=== PATIENT | female | born 1960 | race Caucasian/White ===

== ENCOUNTER 2020-04-06 17:25 | Emergency (ER) | payer OTHER, SELFPAY ==
[2020-04-06 17:38] VITALS: BP 196/112; PULSE 86; RESP 18; TEMP 37.1; O2SAT 98
--- NOTE | 2020-04-06 17:48 | ED.UPPEXIN ---
HPI - Extremity Injury (Upper) General Chief Complaint: Extremity Injury, Upper Stated Complaint: Arm Pain Time Seen by Provider: 04/06/20 17:40 Source: patient and RN notes reviewed Mode of arrival: ambulatory Limitations: no limitations History of Present Illness HPI narrative: Patient presents today complaining of an injury to her left forearm. She tripped and fell into the corner of a wall, left forearm first. Injury occurred around 3 hours prior to exam. Denies numbness or tingling in the arm or hand. No pain with range of motion. Currently rates her pain 2/10 and has been applying ice. She takes no blood thinners or NSAIDs. MD complaint: injury to: left and forearm Related Data Home Medications Medication Instructions Recorded Confirmed amlodipine 10 mg PO DAILY 04/06/20 04/06/20 buspirone 5 mg PO DAILY 04/06/20 04/06/20 venlafaxine 75 mg PO DAILY 04/06/20 04/06/20 Allergies Allergy/AdvReac Type Severity Reaction Status Date / Time codeine Allergy Unknown Other Verified 04/06/20 17:44 ANTIINFLAMMATORY MEDS Allergy Unknown N/V, Uncoded 04/06/20 17:44 STOMACH UPSET Review of Systems Review of Systems: Narrative: CONSTITUTIONAL: Denies body aches, fever, chills, or sweats. EYES: Denies visual changes, redness, or discharge. ENT: Denies rhinorrhea, congestion, sore throat, or otalgia. CARDIOVASCULAR: Denies chest pain, palpitations, or edema. RESPIRATORY: Denies cough or dyspnea. GASTROINTESTINAL: Denies abdominal pain, nausea, vomiting, or diarrhea. GENITOURINARY: Denies dysuria or hematuria. SKIN: Denies rash, itching, or wounds. MUSCULOSKELETAL: Denies back pain, joint pain, or myalgia.+ Left forearm injury NEUROLOGIC: Denies headache, numbness, tingling, or weakness. PSYCH: Denies depression or anxiety. [facility]LY [facility] Past Medical History Medical History (Updated 04/06/20 @ 17:52 by Albertina Siegel, [employer]PER[employer], ) Anxiety Diet-controlled diabetes mellitus Hypertension Comments At time of signature, I have reviewed and agree with nursing past medical, surgical, social and family history unless otherwise noted. Please see nursing chart for further information. There is no relevant family history pertinent to the presenting complaint Exam Narrative: Exam Narrative: GENERAL: Well-appearing, well-nourished, and in no acute distress. HEAD: Normocephalic, atraumatic. EYES: EOMI. No redness or drainage. Conjunctivae normal. ENT: Mucous membranes pink and moist. NECK: Normal AROM. CHEST: No respiratory distress. EXTREMITIES: Left forearm: 12 x 11 cm moderate hematoma to the lateral forearm. Tender to palpation. No bony tenderness of the elbow or forearm. Distal sensation intact. Capillary refill normal. Radial pulse normal. Full range of motion of the elbow and wrist. SKIN: Warm, dry, no rash. Capillary refill normal. Normal skin turgor. NEURO: No focal deficits. Alert and oriented x3. Gait steady. PSYCH: Normal affect. No signs of depression or anxiety. Course Vital Signs Vital signs: Vital Signs Temperature 98.7 F 04/06/20 17:38 Pulse Rate 86 04/06/20 17:38 Respiratory Rate 18 04/06/20 17:38 Blood Pressure 196/112 H 04/06/20 17:38 Pulse Oximetry 98 04/06/20 17:38 Temperature 98.7 F 04/06/20 17:38 Pulse Rate 86 04/06/20 17:38 Respiratory Rate 18 04/06/20 17:38 Blood Pressure 176/108 H 04/06/20 17:56 Pulse Oximetry 98 04/06/20 17:38 Reviewed. Pt has been instructed to follow up with her PCP regarding her elevated blood pressure today. MDM - Extremity Injury (Upper) Differential Diagnosis Differential diagnosis: Likely other (Forearm contusion, hematoma, sprain, fracture) Critical Care Time Critical Care Time Critical Care Time: No Discharge Plan Discharge Clinical Impression: Traumatic hematoma of left forearm Qualifiers: Encounter type: initial encounter Qualified Code(s): S50.12XA - Contusion of left forearm, initial encounter Pat
[2020-04-06 17:56] VITALS: BP 176/108
== END 2020-04-06 17:56 | disposition home or self-care (01) ==
PROVIDERS: Emergency Provider Nurse Practitioner; PCP Nurse Practitioner Family
DX: S50.12XA Contusion of left forearm, initial encounter (principal); W01.0XXA Fall on same level from slipping, tripping and stumbling without subsequent striking against object, initial encounter; F41.9 Anxiety disorder, unspecified; E11.9 Type 2 diabetes mellitus without complications; I10 Essential (primary) hypertension
CPT/HCPCS: 99212; G0463

== ENCOUNTER 2020-12-23 08:04 | Outpatient (CLI) | payer OTHER, SELFPAY ==
--- NOTE | ~2020-12-23 | MM_ITS ---
EXAMINATION: MM screening [facility] BI w luz HISTORY: Screening mammogram TECHNIQUE: Craniocaudal and mediolateral oblique 3-D tomosynthesis images were obtained and synthetic 2-D images were generated. CAD analysis was submitted and interpreted. COMPARISON: 11/25/2018, 03/28/2018, 03/21/2018 BREAST PARENCHYMAL COMPOSITION: There are scattered areas of fibroglandular density. FINDINGS: RIGHT BREAST: There is no evidence of suspicious mass, calcification, or architectural distortion to suggest malignancy. There has been no significant interval change. LEFT BREAST: A mass is present in the middle third of the outer, slightly lower breast best appreciat ed 4.5 cm from the nipple on the craniocaudal view. IMPRESSION: 1. Left breast mass. 2. Additional mammographic views and possible breast ultrasound are recommended. BI-RADS Category 0: Incomplete: Needs additional imaging evaluation. Reviewed, dictated and finalized at location A. IMPRESSION: 1. Left breast mass. 2. Additional mammographic views and possible breast ultrasound are recommended . BI-RADS Category 0: Incomplete: Needs additional imaging evaluation.
[2020-12-23 09:08] LABS: Basophils Percent Auto 0.6 % (0.2-1.2); Eosinophils Absolute Auto 0.2 K/mm3 (0-0.3); Eosinophils Percent Auto 2.7 % (0-4.4); Hematocrit 45.8 % (37.0-47.0); Hemoglobin 14.4 g/dL (12.0-15.0); Immature Granulocyte Absolute 0.03 K/mm3 (0.00-0.031); Immature Granulocyte Percent A 0.5 % (0-0.5); Lymphocytes Percent Auto 33.8 % (18.3-44.2); Mean Corpuscular HGB Conc 31.4 g/dl (32-36); Mean Corpuscular Hemoglobin 27.6 pg (26-34); Mean Corpuscular Volume 87.9 fl (80-100); Mean Platelet Volume 8.8 fl (7.4-10.4); Monocytes Absolute Auto 0.5 K/mm3 (0.1-0.6); Monocytes Percent Auto 7.4 % (2.6-8.5); Neutrophils Absolute Auto 3.4 K/mm3 (1.3-6.7); Platelet Count Result 296 k/mm3 (150-375); Red Blood Count 5.21 M/mm3 (4.2-5.4); Red Cell Distribution Width 12.4 % (11.5-14.5); White Blood Count 6.2 K/mm3 (4.5-10.0)
[2020-12-23 09:25] LABS: Alanine Aminotransferase 40 U/L (4-35); Albumin Level 4.3 g/dL (3.5-5.1); Alkaline Phosphatase 88 U/L (38-126); Anion Gap 4 mmol/L (8-16); Aspartate Amino Transferase 35 U/L (14-36); Bilirubin,Total 0.5 mg/dL (0.2-1.3); Blood Urea Nitrogen 14 mg/dL (7-17); Calcium 9.2 mg/dL (8.4-10.2); Carbon Dioxide 31 mmol/L (22-30); Chloride 106 mmol/L (98-107); Cholesterol 291 mg/dL (0-200); Estimated Glomerular Filt Rate > 60; Glucose 130 mg/dL (65-105); HDL Direct 35 mg/dL; Potassium 3.9 mmol/L (3.4-5.0); Sodium 141 mmol/L (137-145); Triglycerides 301 mg/dL (<150)
[2020-12-23 09:33] LABS: Hemoglobin A1C 7.1 % (<5.7)
[2020-12-23 09:43] LABS: LDL Cholesterol Direct 186 mg/dL
[2020-12-23 10:06] LABS: Total Triiodothyronine (T3) 1.35 NG/ML (0.97-1.69)
[2020-12-23 10:50] LABS: Free T4 Free Thyroxine 0.95 ng/mL (0.78-2.19); Vitamin D 25 Hydroxy 18.1 ng/mL
== END 2020-12-23 08:05 | disposition home or self-care (01) ==
PROVIDERS: PCP Family Medicine; Visit Provider Nurse Practitioner
DX: Z12.31 Encounter for screening mammogram for malignant neoplasm of breast (principal); E11.65 Type 2 diabetes mellitus with hyperglycemia; E55.9 Vitamin D deficiency, unspecified; R92.8 Other abnormal and inconclusive findings on diagnostic imaging of breast
CPT/HCPCS: 36415; 77063; 77067; 80053; 80061; 82306; 83036; 84439; 84443; 84480; 85025

== ENCOUNTER 2021-01-27 11:17 | Outpatient (CLI) | payer OTHER, SELFPAY ==
--- NOTE | ~2021-01-27 | MMUS_ITS ---
EXAMINATION: MM diagnostic mammo unilat LT, US breast LT limited HISTORY: Left breast mass on screening mammogram TECHNIQUE: Additional 3-D tomosynthesis images of the left breast were performed and synthetic 2-D im ages were generated. CAD analysis was submitted and interpreted. High resolution limited left breast ultrasound was performed. COMPARISON: 12/23/2020, 11/25/2018, 03/28/2018 BREAST PARENCHYMAL COMPOSITION: There are scattered areas of fibroglandular density. FINDINGS: MAMMOGRAPHIC FINDINGS: There is an 8 mm x 5 mm oval, equal density mass with possible microlobulated margin in the middle th ird of the slightly outer breast at the 3:00 location 3.5 cm from the nipple. ULTRASOUND: There is a 6 mm x 4 mm irregular hypoechoic mass with angular margins at the 3:00 location with no po sterior features or internal vascularity. IMPRESSION: 1. Indeterminate left breast mass. 2. Ultrasound-guided biopsy is recommended. BI-RADS category 4, suspicious findings. Reviewed, dictated and finalized at location A. IMPRESSION: 1. Indeterminate left breast mass. 2. Ultrasound-guided biopsy is recommended. BI-RADS category 4, suspicious findings.
== END 2021-01-27 11:18 | disposition home or self-care (01) ==
LOC: ANHIMG 11:19
PROVIDERS: PCP Family Medicine; Visit Provider Nurse Practitioner
DX: N63.25 Unspecified lump in the left breast, overlapping quadrants (principal)
CPT/HCPCS: 76642; 77065

== ENCOUNTER 2021-06-30 07:50 | Outpatient (CLI) | payer OTHER, SELFPAY ==
[2021-06-30 08:58] LABS: Alanine Aminotransferase 33 U/L (4-35); Albumin Level 4.5 g/dL (3.5-5.1); Alkaline Phosphatase 99 U/L (38-126); Anion Gap 8 mmol/L (8-16); Aspartate Amino Transferase 31 U/L (14-36); Bilirubin,Total 0.3 mg/dL (0.2-1.3); Blood Urea Nitrogen 14 mg/dL (7-17); Calcium 9.3 mg/dL (8.4-10.2); Carbon Dioxide 29 mmol/L (22-30); Chloride 102 mmol/L (98-107); Cholesterol 321 mg/dL (0-200); Estimated Glomerular Filt Rate > 60; Glucose 133 mg/dL (65-110); HDL Direct 36 mg/dL; Sodium 139 mmol/L (137-145); Triglycerides 250 mg/dL (<150)
[2021-06-30 09:09] LABS: LDL Cholesterol Direct 235 mg/dL
[2021-06-30 09:11] LABS: Basophils Absolute Auto 0.1 K/mm3 (0.0-0.1); Basophils Percent Auto 0.8 % (0.2-1.2); Eosinophils Absolute Auto 0.3 K/mm3 (0-0.3); Eosinophils Percent Auto 4.1 % (0-4.4); Hematocrit 44.9 % (37.0-47.0); Hemoglobin 14.2 g/dL (12.0-15.0); Immature Granulocyte Absolute 0.03 K/mm3 (0.00-0.031); Immature Granulocyte Percent A 0.5 % (0-0.5); Lymphocytes Percent Auto 37.4 % (18.3-44.2); Mean Corpuscular HGB Conc 31.6 g/dl (32-36); Mean Corpuscular Hemoglobin 28.3 pg (26-34); Mean Corpuscular Volume 89.4 fl (80-100); Mean Platelet Volume 8.8 fl (7.4-10.4); Monocytes Absolute Auto 0.5 K/mm3 (0.1-0.6); Monocytes Percent Auto 7.6 % (2.6-8.5); Neutrophils Absolute Auto 3.2 K/mm3 (1.3-6.7); Neutrophils Percent Auto 49.6 % (45.5-73.1); Platelet Count Result 268 k/mm3 (150-375); Red Blood Count 5.02 M/mm3 (4.2-5.4); Red Cell Distribution Width 12.2 % (11.5-14.5); White Blood Count 6.4 K/mm3 (4.5-10.0)
[2021-06-30 09:21] LABS: Creatinine Urine 314.9 mg/dL
[2021-06-30 09:25] LABS: MALB Creatinine Ratio 24.1 mg/g (0-30); Microalbumin Urine Random 75.9 mg/L (0-16.7)
[2021-06-30 09:28] LABS: Total Triiodothyronine (T3) 1.51 NG/ML (0.97-1.69)
[2021-06-30 09:35] LABS: Free T4 Free Thyroxine 1.05 ng/mL (0.78-2.19); Vitamin D 25 Hydroxy 17.9 ng/mL
== END 2021-06-30 07:51 | disposition home or self-care (01) ==
PROVIDERS: PCP Family Medicine; Visit Provider Family Medicine
DX: E03.9 Hypothyroidism, unspecified (principal); E55.9 Vitamin D deficiency, unspecified; E11.9 Type 2 diabetes mellitus without complications; E78.5 Hyperlipidemia, unspecified; E66.3 Overweight; I10 Essential (primary) hypertension
CPT/HCPCS: 36415; 80053; 80061; 82043; 82306; 84439; 84443; 84480; 85025

== ENCOUNTER 2021-11-18 16:15 | Emergency (ER) | payer OTHER, SELFPAY ==
--- NOTE | ~2021-11-18 | XR_ITS ---
EXAMINATION: XR hand RT min 3V DATE: 11/18/2021 16:33 INDICATION: Right thumb pain post injury TECHNIQUE: Posteroanterior, oblique and lateral views of the right hand were obtained. COMPARISON: Right wrist radiographs dated 12/13/2017 FINDINGS: Alignment is normal. No fracture. Polyarticular osteoarthritis at the right hand and wrist, moderate severity at the first carpal metacarpal joint and second, fourth and fifth distal interphalangeal abida nts and mild at the radial ulnar, wrist, midcarpal, triscaphe and many of the metacarpophalangeal and remaining interphalangeal joints. Consider mild cystic change along the proximal articular surface o f the lunate. Diffuse osteopenia. Soft tissues are unremarkable. IMPRESSION: 1. 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 No acute osseous abnorm ality. Reviewed, dictated and finalized at location B. IMPRESSION: 1. 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 N o acute osseous abnormality.
[2021-11-18 16:24] VITALS: BP 185/112; PULSE 94; RESP 16; TEMP 36.6; O2SAT 99
--- NOTE | 2021-11-18 16:27 | ED.UPPEXIN ---
HPI - Extremity Injury (Upper) General Chief Complaint: Extremity Injury, Upper Stated Complaint: right hand pain Time Seen by Provider: 11/18/21 16:27 Source: patient, RN notes reviewed and old records reviewed Mode of arrival: ambulatory Limitations: no limitations History of Present Illness HPI narrative: 61-year-old female presents to the [facility] with complaints of right thumb pain after closing it in a sliding door. Bruising and swelling noted to the base of right thumb. No treatment prior to arrival occurred a couple of hours prior to arrival. Has full range of motion. No treatment prior to arrival MD complaint: injury to: right and hand Related Data Home Medications Medication Instructions Recorded Confirmed atorvastatin 40 mg PO DAILY 11/18/21 11/18/21 bupropion HCl [Wellbutrin] 100 mg PO BID 11/18/21 11/18/21 ergocalciferol (vitamin D2) 1,250 mcg PO WEEKLY 11/18/21 11/18/21 escitalopram oxalate 20 mg PO DAILY 11/18/21 11/18/21 lisinopril 20 mg PO DAILY 11/18/21 11/18/21 Allergies Allergy/AdvReac Type Severity Reaction Status Date / Time codeine Allergy Unknown Other Verified 11/18/21 16:25 ANTIINFLAMMATORY MEDS Allergy Unknown N/V, Uncoded 11/18/21 16:45 STOMACH UPSET Review of Systems Review of Systems: All systems reviewed & are unremarkable except as noted in HPI and below Constitutional: Constitutional: Reports no additional constitutional complaints, Denies chills and Denies fever(s) Eyes: Eyes: Reports no additional eye complaints ENT: Reports system reviewed and no additional complaints, except as documented Cardiovascular: Cardiovascular: Reports no additional cardiovascular complaints Respiratory: Respiratory: Reports no additional respiratory complaints Gastrointestinal: Gastrointestinal: Reports no additional gastrointestinal complaints Musculoskeletal: Musculoskeletal: Reports as per HPI, Reports arthralgias (Base of right thumb) and Reports joint swelling (Base of right thumb) Integumentary/Breasts: Skin/Breast: Reports system reviewed and no additional complaints, except as docu Neurologic: Reports system reviewed and no additional complaints, except as documented Psychiatric: Psychiatric: Reports no additional psychiatric complaints Allergic/Immunologic: Allergic/Immunologic: Reports no additional allergic/immunologic complaints [facility] Past Medical History Medical History (Updated 11/18/21 @ 16:44 by Kelly A. Topper, [employer]) Anxiety Diet-controlled diabetes mellitus Hypertension Comments At the time of my signature, I reviewed and agree with the nursing past medical, surgical, social, and family history. There is no relevant family history pertinent to the patient complaint. Exam Const: General: no acute distress, alert and ill appearing chronically Nutritional Appearance: well nourished Orientation/consciousness: patient oriented x3 Limitations: no limitations HENMT: Head: normal to inspection Ears: external ears normal Eyes: Pupils: Equal, round and reactive pupils present Neck: Neck: normal visual inspection, no lymphadenopathy and no meningeal signs Chest: Chest palpation & inspection: normal inspection of the chest Resp: Effort & Inspection: normal respiratory effort and no use of accessory muscles Auscultation: clear to auscultation bilaterally, no crackles, no rales, no rhonchi and no wheezes Cardio: Rate: regular rate Rhythm: regular rhythm : General: Yes no CVA tenderness Back/Spine/Pelvis: Back: no CVA tenderness Skin: General skin exam: normal color and no erythema Rashes: no rashes Wounds: no wounds Neuro: General: patient oriented x3, moves all extremities, no meningeal signs and no focal motor deficits Cranial nerves: Yes Equal, round and reactive pupils present Speech: normal speech Gait exam (Neuro): Normal gait present Extrem: General: normal to inspection Right upper extremity: Extremity exam: right hand normal capillary
[2021-11-18 16:50] VITALS: BP 150/88
== END 2021-11-18 16:50 | disposition home or self-care (01) ==
PROVIDERS: Emergency Provider Nurse Practitioner
DX: S60.011A Contusion of right thumb without damage to nail, initial encounter (principal); X58.XXXA Exposure to other specified factors, initial encounter; F41.9 Anxiety disorder, unspecified; E11.9 Type 2 diabetes mellitus without complications; I10 Essential (primary) hypertension
CPT/HCPCS: 73130; 99213; G0463

== ENCOUNTER 2022-11-05 08:21 | Outpatient (CLI) | payer OTHER, SELFPAY ==
[2022-11-05 09:44] LABS: Hematocrit 44.4 % (37.0-47.0); Hemoglobin 14.6 g/dL (12.0-15.0); Mean Corpuscular HGB Conc 32.9 g/dl (32-36); Mean Corpuscular Hemoglobin 27.3 pg (26-34); Mean Corpuscular Volume 83.1 fl (80-100); Mean Platelet Volume 8.9 fl (7.4-10.4); Platelet Count Result 345 k/mm3 (150-375); Red Blood Count 5.34 M/mm3 (4.2-5.4); Red Cell Distribution Width 12.7 % (11.5-14.5); White Blood Count 12.6 K/mm3 (4.5-10.0)
[2022-11-05 10:16] LABS: Vitamin D 25 Hydroxy 24.7 ng/mL
[2022-11-05 11:47] LABS: Alanine Aminotransferase 83 U/L (6-35); Albumin Level 4.6 g/dL (3.5-5.1); Alkaline Phosphatase 115 U/L (38-126); Anion Gap 10 mmol/L (8-16); Aspartate Amino Transferase 54 U/L (14-36); Bilirubin,Total 0.6 mg/dL (0.2-1.3); Blood Urea Nitrogen 24 mg/dL (7-17); Calcium 9.5 mg/dL (8.4-10.2); Carbon Dioxide 27 mmol/L (22-30); Chloride 100 mmol/L (98-107); Estimated Glomerular Filt Rate > 60; Glucose 328 mg/dL (65-110); Magnesium 1.9 mg/dL (1.6-2.3); Phosphorus 4.4 mg/dL (2.5-4.5); Potassium 4.6 mmol/L (3.4-5.0); Sodium 137 mmol/L (137-145)
[2022-11-05 12:36] LABS: Thyroid Stimulating Hormone 0.922 uIU/mL (0.465-4.680)
[2022-11-05 13:03] LABS: Iron 92 ug/dL (37-170)
[2022-11-05 13:08] LABS: Percent Iron Saturation 31 % (20-50)
[2022-11-05 13:12] LABS: Folic Acid 7.6 ng/mL (2.76->20)
[2022-11-10 03:43] LABS: Testosterone Free 5.5 pg/mL (0.2-5.0)
== END 2022-11-05 08:22 | disposition home or self-care (01) ==
LOC: ANHLAB 08:24
PROVIDERS: Visit Provider Family Medicine
DX: R53.83 Other fatigue (principal); M62.81 Muscle weakness (generalized); I10 Essential (primary) hypertension; E78.5 Hyperlipidemia, unspecified; E55.9 Vitamin D deficiency, unspecified
CPT/HCPCS: 36415; 80053; 82306; 82607; 82746; 83540; 83550; 83735; 84100; 84402; 84443; 85027

== ENCOUNTER 2022-11-14 10:45 | Emergency (ER) | payer OTHER, SELFPAY ==
--- NOTE | 2022-11-14 10:54 | ED.LOWEXIN ---
HPI - Extremity Injury (Lower) General Chief Complaint: Skin/Abscess/Foreign Body Stated Complaint: Left Leg Pain Source: patient and RN notes reviewed History of Present Illness HPI Narrative: 62 yo F presents to urgent care with complaints of a painful, red, area to her left lower leg. Pt states she doesn't know if she was bit by something but she first noticed it 3 days ago. Pt has been using Prid and other OTC ointments without relief. Pt had a MD appt yesterday for it but it was canceled due to the weather. Pt reports increased pain with anything touching the area. Reports subjective fevers at nighttime but states she has had these since she had Covid 1 month ago. Pt has been seen for this and dx with Long Covid. Denies any new chest pain, SOB, or vomiting. Related Data Home Medications Medication Instructions Recorded Confirmed lisinopril 20 mg tablet 20 mg PO DAILY 11/18/21 11/14/22 Allergies Allergy/AdvReac Type Severity Reaction Status Date / Time codeine Allergy Unknown Other Verified 11/14/22 10:59 ANTIINFLAMMATORY MEDS Allergy Unknown N/V, Uncoded 11/14/22 10:59 STOMACH UPSET Review of Systems Review of Systems: Pertinent positives and pertinent negatives per HPI. FORMERLY [facility] Past Medical History Medical History (Updated 11/14/22 @ 11:10 by Candelaria Lundberg, FATOUMATA) Anxiety Diet-controlled diabetes mellitus Hypertension Comments At the time of my signature, I reviewed and agree with the nursing past medical, surgical, social, and family history. There is no relevant family history pertinent to the patient complaint. Exam Narrative: GENERAL: This is a well-nourished, well-developed patient, in no apparent distress. HEAD: normocephalic, atraumatic. EYES: PERRL. Sclera clear/white. Vision is grossly intact. EARS: External ears normal, auditory canals clear and without drainage, TMs normal without perforation. Hearing grossly intact. NOSE: External nose normal with no obvious nasal discharge, nares without redness, no rhinorrhea. THROAT: Mucous membranes moist, posterior pharynx clear. NECK: Neck supple, non-tender without lymphadenopathy, masses or thyromegaly. CARDIOVASCULAR: Regular rate and rhythm without murmurs, gallops, or rubs. RESPIRATORY: Clear to auscultation. Breath sounds equal bilaterally. No wheezes, rales, or rhonchi. GASTROINTESTINAL: Abdomen soft, non-tender, nondistended. Bowel sounds are active. No hepato-splenomegaly, or palpable masses. No guarding. SKIN: area of darkened erythema of 2cm x 1 cm to LL leg with surrounding area of mild erythema extending approximtely 1 cm of erythema. no drainage. NEURO: awake, alert, and oriented to person, place and time. There were no obvious focal neurologic abnormalities. EXTREMITIES: No clubbing, cyanosis, or edema. No joint tenderness, effusion, or edema noted. Course Course Level of Care: Express Care Visit Vital Signs Vital signs: Vital Signs Temperature 97.3 F L 11/14/22 10:59 Pulse Rate 105 H 11/14/22 10:59 Respiratory Rate 16 11/14/22 10:59 Blood Pressure 155/90 H 11/14/22 10:59 Pulse Oximetry 100 11/14/22 10:59 Oxygen Delivery Room Air 11/14/22 10:59 Temperature 97.3 F L 11/14/22 11:00 Pulse Rate 105 H 11/14/22 11:00 Respiratory Rate 16 11/14/22 11:00 Blood Pressure 155/90 H 11/14/22 11:00 Pulse Oximetry 100 11/14/22 11:00 Oxygen Delivery Room Air 11/14/22 11:00 Reviewed MDM - Extremity Injury (Lower) MDM Narrative Medical decision making narrative: Clean with soap and water only; Avoid using alcohol and peroxide. Elevate the affected area if possible Alternate Tylenol/ibuprofen for as needed for pain Acetaminophen(Tylenol) 650-1000mg every 4-6hours with max of 4000mg/day. Nonsteroidal anti-inflammatory agent (NSAIDs-ibuprofen): 400mg every 4-6hours with max 2400mg/day Take antibiotic until it's gone. Please schedule a follow up visit with your personal physician for further eval
[2022-11-14 10:59] VITALS: BP 155/90; PULSE 105; RESP 16; TEMP 36.3; O2SAT 100
[2022-11-14 11:00] VITALS: BP 155/90; PULSE 105; RESP 16; TEMP 36.3; O2SAT 100
== END 2022-11-14 11:14 | disposition home or self-care (01) ==
PROVIDERS: Emergency Provider Nurse Practitioner Family; PCP Family Medicine
DX: L03.116 Cellulitis of left lower limb (principal); E11.9 Type 2 diabetes mellitus without complications; I10 Essential (primary) hypertension
CPT/HCPCS: 99213; G0463

== ENCOUNTER 2022-11-16 11:46 | Outpatient (CLI) | payer OTHER, SELFPAY ==
--- NOTE | ~2022-11-16 | XR_ITS ---
EXAMINATION: XR chest 2V DATE: 11/16/2022 11:59 INDICATION: COVID with cough, fever, fatigue and weakness TECHNIQUE: PA and lateral views of the chest were obtained. COMPARISON: Chest radiograph dated 04/15/2015 FINDINGS: The lungs remain clear with no focal airspace opacities, pulmonary edema, pleural effusion or pneumot horax. The cardiomediastinal silhouette is normal. Cholecystectomy clips in right upper quadrant IMPRESSION: 1. No acute cardiopulmonary disease. Reviewed, dictated and finalized at location A.
== END 2022-11-16 11:47 | disposition home or self-care (01) ==
LOC: ANHIMG 11:48
PROVIDERS: PCP Family Medicine; Visit Provider Nurse Practitioner Adult Health
DX: R05.9 Cough, unspecified (principal); R50.9 Fever, unspecified; R53.1 Weakness; R53.83 Other fatigue; J18.2 Hypostatic pneumonia, unspecified organism; Z86.16 Personal history of COVID-19
CPT/HCPCS: 71046

== ENCOUNTER 2023-08-23 11:54 | Outpatient (CLI) | payer MEDICARE, MEDICAID, SELFPAY ==
[2023-08-23 12:25] LABS: Hematocrit 45.6 % (37.0-47.0); Hemoglobin 14.5 g/dL (12.0-15.0); Mean Corpuscular HGB Conc 31.8 g/dl (32-36); Mean Corpuscular Hemoglobin 27.8 pg (26-34); Mean Corpuscular Volume 87.5 fl (80-100); Mean Platelet Volume 8.7 fl (7.4-10.4); Platelet Count Result 264 k/mm3 (150-375); Red Blood Count 5.21 M/mm3 (4.2-5.4)
[2023-08-23 12:43] LABS: Alanine Aminotransferase 37 U/L (6-35); Albumin Level 4.2 g/dL (3.5-5.1); Alkaline Phosphatase 93 U/L (38-126); Anion Gap 10 mmol/L (8-16); Aspartate Amino Transferase 34 U/L (14-36); Bilirubin,Total 0.5 mg/dL (0.2-1.3); Blood Urea Nitrogen 11 mg/dL (7-17); Calcium 9.4 mg/dL (8.4-10.2); Carbon Dioxide 27 mmol/L (22-30); Chloride 102 mmol/L (98-107); Estimated Glomerular Filt Rate > 60; Glucose 172 mg/dL (65-110); Magnesium 1.9 mg/dL (1.6-2.3); Phosphorus 3.6 mg/dL (2.5-4.5); Potassium 4.4 mmol/L (3.4-5.0); Sodium 139 mmol/L (137-145)
[2023-08-23 13:23] LABS: Iron 136 ug/dL (37-170)
[2023-08-23 14:03] LABS: Vitamin D 25 Hydroxy 22.2 ng/mL
[2023-08-23 15:03] LABS: Folic Acid 15.1 ng/mL (2.76->20)
[2023-08-27 12:05] LABS: Testosterone Free 3.9 pg/mL (0.2-5.0)
== END 2023-08-23 11:55 | disposition home or self-care (01) ==
PROVIDERS: PCP Family Medicine; Visit Provider Family Medicine
DX: M62.81 Muscle weakness (generalized) (principal); E55.9 Vitamin D deficiency, unspecified; E03.9 Hypothyroidism, unspecified; D64.9 Anemia, unspecified
CPT/HCPCS: 36415; 80053; 82306; 82607; 82746; 83540; 83735; 84100; 84402; 84443; 85027

== ENCOUNTER 2023-10-07 07:03 | Outpatient (CLI) | payer MEDICARE, MEDICAID, SELFPAY ==
[2023-10-07 08:28] LABS: LDL Cholesterol Direct 187 mg/dL
[2023-10-07 08:48] LABS: Cholesterol 345 mg/dL (0-200); Triglycerides 667 mg/dL (<150)
== END 2023-10-07 07:04 | disposition home or self-care (01) ==
PROVIDERS: PCP Family Medicine; Visit Provider Family Medicine
DX: E11.9 Type 2 diabetes mellitus without complications (principal); E78.5 Hyperlipidemia, unspecified; F32.A Depression, unspecified
CPT/HCPCS: 36415; 80061

== ENCOUNTER 2023-12-09 12:22 | Outpatient (CLI) | payer MEDICARE, MEDICAID, SELFPAY ==
--- NOTE | ~2023-12-09 | XR_ITS ---
EXAMINATION: XR chest 2V 12/09/2023 12:42 INDICATION: Chronic cough PROCEDURE: 2 view chest COMPARISON: 11/16/2022 FINDINGS: The lungs are clear. The cardiomediastinal silhouette is within normal limits. There are no pleural effusions. There is no pneumothorax suspected. IMPRESSION: 1: NO ACUTE CARDIOPULMONARY DISEASE. Reviewed, dictated and finalized at location B.
== END 2023-12-09 12:23 | disposition home or self-care (01) ==
LOC: ANHIMG 12:24
PROVIDERS: PCP Family Medicine; Visit Provider Registered Nurse
DX: R05.3 Chronic cough (principal)
CPT/HCPCS: 71046

== ENCOUNTER 2024-02-07 10:13 | Outpatient (CLI) | payer MEDICARE, MEDICAID, SELFPAY ==
[2024-02-07 11:02] LABS: Basophils Percent Auto 0.4 % (0.2-1.2); Eosinophils Absolute Auto 0.2 K/mm3 (0-0.3); Eosinophils Percent Auto 1.9 % (0-4.4); Hematocrit 44.2 % (37.0-47.0); Hemoglobin 13.7 g/dL (12.0-15.0); Immature Granulocyte Absolute 0.04 K/mm3 (0.00-0.031); Immature Granulocyte Percent A 0.5 % (0-0.5); Lymphocytes Absolute Auto 2.34 K/mm3 (0.9-3.2); Lymphocytes Percent Auto 30.1 % (18.3-44.2); Mean Corpuscular Hemoglobin 27.6 pg (26-34); Mean Corpuscular Volume 88.9 fl (80-100); Mean Platelet Volume 8.7 fl (7.4-10.4); Monocytes Absolute Auto 0.5 K/mm3 (0.1-0.6); Monocytes Percent Auto 6.4 % (2.6-8.5); Neutrophils Absolute Auto 4.7 K/mm3 (1.3-6.7); Neutrophils Percent Auto 60.7 % (45.5-73.1); Platelet Count Result 319 k/mm3 (150-375); Red Blood Count 4.97 M/mm3 (4.2-5.4); Red Cell Distribution Width 12.5 % (11.5-14.5); White Blood Count 7.8 K/mm3 (4.5-10.0)
[2024-02-07 11:06] LABS: Appearance Urine Clear (Clear); Bacteria Urine None Seen /hpf; Bilirubin Urine Negative (Negative); Blood Urine Negative (Negative); Color Urine Yellow (Yellow); Glucose Urine UA Negative (Negative); Ketones Urine Negative (Negative); Leukocyte Esterase Ur 1+ LEU/UL (Negative); Nitrate Urine Negative (Negative); Non Pathogenic Casts 0-2; Protein Urine Negative (Negative); RBC Urine 0-2 /hpf (0-2); Specific Grav Ur 1.025 (1.001-1.035); Squamous Epithelial Cell Urine None Seen /hpf (Few); pH Urine 5.5 (5.0-9.0)
[2024-02-07 11:14] LABS: Alanine Aminotransferase 21 U/L (6-35); Albumin Level 4.3 g/dL (3.5-5.1); Alkaline Phosphatase 65 U/L (38-126); Anion Gap 6 mmol/L (4-12); Aspartate Amino Transferase 32 U/L (14-36); Bilirubin,Total 0.5 mg/dL (0.2-1.3); Blood Urea Nitrogen 17 mg/dL (7-17); Calcium 9.1 mg/dL (8.4-10.2); Carbon Dioxide 30 mmol/L (22-30); Chloride 105 mmol/L (98-107); Cholesterol 308 mg/dL (0-200); Estimated Glomerular Filt Rate > 60; Glucose 127 mg/dL (65-110); HDL Direct 34 mg/dL; Sodium 141 mmol/L (137-145); Triglycerides 242 mg/dL (<150)
[2024-02-07 11:18] LABS: Add Urine Microscopic? YES
[2024-02-07 11:21] LABS: Creatinine Urine 202.2 mg/dL
[2024-02-07 11:24] LABS: LDL Cholesterol Direct 224 mg/dL
[2024-02-07 11:25] LABS: Microalbumin Urine Random 16.1 mg/L (0-16.7)
== END 2024-02-07 10:14 | disposition home or self-care (01) ==
LOC: ANHLAB 10:15
PROVIDERS: PCP Family Medicine; Visit Provider Registered Nurse
DX: E78.5 Hyperlipidemia, unspecified (principal); I10 Essential (primary) hypertension; E11.9 Type 2 diabetes mellitus without complications
CPT/HCPCS: 36415; 80053; 80061; 81001; 82043; 83036; 85025

== ENCOUNTER 2024-04-27 09:55 | Outpatient (CLI) | payer MEDICARE, MEDICAID, SELFPAY ==
--- NOTE | 2024-04-28 15:52 | WPDPFTINT ---
PFT Procedure Performed PFT Procedure Performed Plethysmography (Lung Vol) Diffusing Cap (DLCO) Flow Vol Loop Spirometry w/o Bronchodil PFT Interpretation Lung volumes were measured with the body plethysmography method. Lung volumes are unremarkable. Spirometry showed normal expiratory flow rates and a normal FEV1 to FVC ratio 78%. Lung diffusion capacity is within the normal range at 75% predicted. The flow-volume loop is unremarkable. No post bronchodilator study was carried out. Impression: Spirometry, lung volumes, and lung diffusion capacity all within the normal range.
[2024-04-29 14:22] LABS: Alternaria alternata IgE <0.10 kU/L; Alternaria alternata IgE Class 0; Aspergillus fumigatus IgE <0.10 kU/L; Bermuda Grass (G2) IgE <0.10 kU/L; Bermuda Grass (G2) IgE Class 0; Cat Dander IgE <0.10 kU/L; Cat Dander IgE Class 0; Cladosporium herbarum IgE <0.10 kU/L; Cladosporium herbarum IgE Clas 0; Cockroach IgE <0.10 kU/L; Cockroach IgE Clas 0; Common Ragweed IgE Class 0; Cottonwood IgE <0.10 kU/L; Dermatophagoides Farinae Class 0; Dermatophagoides Pterony Class 0; Dermatophagoides Pteronyssinus <0.10 kU/L; Dog Dander IgE <0.10 kU/L; Elm (T8) IgE <0.10 kU/L; Elm (T8) IgE Class 0; Hickory/Pecan IgE <0.10 kU/L; Hickory/Pecan IgE Class 0; Immunoglobulin E 18 kU/L (<OR=114); Maple Box Elder IgE Class 0; Mountain Cedar IgE <0.10 kU/L; Mountain Cedar IgE Class 0; Mouse Urine Proteins IgE <0.10 kU/L; Mouse Urine Proteins IgE Class 0; Oak IgE <0.10 kU/L; Peniciliium notatum class 0; Penicillium notatum (M1) IgE <0.10 kU/L; Rough Marsh <0.10 kU/L; Rough Marsh Elder Class 0; Rough Pigweed (W14) IgE <0.10 kU/L; Rough Pigweed (W14) IgE Class 0; Russian Thistle <0.10 kU/L; Sycamore IgE <0.10 kU/L; Sycamore IgE Class 0; Timothy Grass IgE <0.10 kU/L; Timothy Grass IgE Class 0; Walnut Tree IgE <0.10 kU/L; Walnut Tree IgE Class 0; White Ash IgE Class 0; White Mulberry IgE <0.10 kU/L; White Mulberry IgE Class 0
== END 2024-04-27 09:56 | disposition home or self-care (01) ==
LOC: ANHPFT 10:00
PROVIDERS: PCP Family Medicine; Visit Provider Physician Assistant
DX: R05.9 Cough, unspecified (principal); T78.40XA Allergy, unspecified, initial encounter; U09.9 Post COVID-19 condition, unspecified
CPT/HCPCS: 36415; 82785; 86003; 94375; 94726; 94729

== ENCOUNTER 2024-07-03 09:38 | Outpatient (CLI) | payer MEDICARE, MEDICAID, SELFPAY ==
--- NOTE | ~2024-07-03 | MM_ITS ---
EXAMINATION: MM screening [facility] BI w luz HISTORY: Screening mammogram TECHNIQUE: Craniocaudal and mediolateral oblique 3-D tomosynthesis images were obtained and synthetic 2-D images were generated. CAD analysis was submitted and interpreted. COMPARISON: 12/23/2020, 11/25/2018 BREAST PARENCHYMAL COMPOSITION:Not Dense. There are scattered areas of fibroglandular density. FINDINGS: No suspicious mass, calcification, or architectural distortion are identified in either masoud ast to suggest malignancy. There has been no suspicious interval change. IMPRESSION: No mammographic evidence of malignancy. Recommend routine screening mammography in one year. BI-RADS Category 1: Negative Reviewed, dictated and finalized at location . C CATALOGUER
== END 2024-07-03 09:39 | disposition home or self-care (01) ==
PROVIDERS: PCP Family Medicine; Visit Provider Family Medicine
DX: Z12.31 Encounter for screening mammogram for malignant neoplasm of breast (principal)
CPT/HCPCS: 77063; 77067

== ENCOUNTER 2024-10-09 10:08 | Outpatient (CLI) | payer MEDICARE, MEDICAID, SELFPAY ==
--- OUTSIDE RECORDS SUMMARY | 2024-10-09 11:19 | XMS_ITS | Clinical Summary ---
Author Organization [facility] Address [facility] [place] [address] Care Team Providers Care Orthopedic Physician Assistant Name Role Phone MeñoKayley howell NEYDA Primary Care Provider [phone] Jim Johns MD Unavailable [phone] Allergies Active Allergy Reactions Criticality Noted Date Comments Nsaids GI Upset 09/02/2018 Medications AVEL CONTOUR test strip 09/06/19 18 Active ONETOUCH VERIO w/Device KitIndications:Typ e 2 diabetes mellitus with diabetic polyneuropathy, without long-term current use of insulin ([facility]) USE DIRECTED 1 kit 04/03/20 19 Active Lancets MiscIndications:Ty pe 2 diabetes mellitus with diabetic polyneuropathy, without long-term current use of insulin ([facility]) Test blood glucose three times daily 200 Container 3 04/03/20 19 Active atorvastatin 80 MG tablet Take 1 tablet (80 mg total) by mouth nightly at bedtime. 90 tablet 1 06/21/20 19 Active ondansetron 4 MG disintegrating tabletIndications: Back spasm,Nausea Take 1 tablet (4 mg total) by mouth every 6 (six) hours as needed for Nausea. 30 tablet 02/15/20 20 Active amLODIPine 10 MG tabletIndications: Secondary hypertension Take 1 tablet (10 mg total) by mouth daily. 30 tablet 5 04/08/20 20 Active Glucose Blood (IGLUCOSE TEST STRIPS) test stripIndications:T ype 2 diabetes mellitus with diabetic polyneuropathy, without long-term current use of insulin ([facility]) 1 strip by Other route 4 (four) times a day. Use as instructed 100 strip 04/08/20 Active losartan 25 MG tabletIndications: Secondary hypertension Take 1 tablet (25 mg total) by mouth daily. 30 tablet 04/08/20 Active omeprazole 20 MG capsuleIndications :Gastroesophageal reflux disease, esophagitis presence not specified Take 1-2 capsules (20-40 mg total) by mouth daily. 30 capsule 04/08/20 20 Active fluconazole 100 MG tabletIndications: Shila albicans infection Take 1 tablet (100 mg total) by mouth daily. 7 tablet 1 05/23/20 Active methylPREDNISolone , ANNY, 4 MG tabletIndications: Right sided sciatica Follow package directions 1 each 05/23/20 Active Active Problems Problem Noted Date Diagnosed Date Hip pain, chronic, right 05/26/2020 Shila albicans infection 05/26/2020 Hepatic steatosis 06/20/2019 Shortness of breath on exertion 06/20/2019 Right sided sciatica 05/29/2019 Near syncope 03/19/2019 Dizziness 03/19/2019 RUQ abdominal pain 02/27/2019 Chronic cough 02/08/2019 Pain in both lower extremities 02/08/2019 Mixed hyperlipidemia 02/08/2019 Elevated liver enzymes 02/08/2019 Cervical stenosis of spinal canal 08/18/2018 Protruded cervical disc 08/18/2018 Neuroforaminal stenosis of cervical spine 2017 Neck pain 05/13/2018 History of claustrophobia 05/02/2018 Herpes zoster 04/25/[address] scan, cervical spine 04/20/2018 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 Right arm numbness 04/20/2018 Right facial numbness 04/20/2018 Abnormal mammogram 03/22/2018 Depression with anxiety 03/21/2018 Arthritis 03/08/2018 Deficiency of vitamin B 03/08/2018 GERD (gastroesophageal reflux disease) 8 Hearing loss 03/08/2018 Hypertension 03/08/2018 Nausea 03/08/2018 Restless leg syndrome 03/08/2018 Type 2 diabetes mellitus ([facility]) 03/08 Abnormal echocardiogram Immunizations Name Administration Dates Next Due Fluzone 6 Months+ Quad (0.5 mL Prefilled Syringe ) 05/23/2020,07/29/2015 Influenza Adult (Generic) 06/04/2016 Tdap (Boostrix) 09/02/2012 Family History Medical History Relation Comments Cancer Father Diabetes Father Hypertension Father Heart Mother Hypertension Mother Lung Disease Neg Hx Relation Status Comments Father Mother Social History Tobacco Use Types Packs/Day Years Used Date Smoking Tobacco: Former Cigarettes 0.5 28.1 S tarted: 1996 Smokeless Tobacco: Never Alcohol Use Standard Drinks/Week Comments No 0 (1 standard drink = 0.6 oz pur e alcohol) AUDIT-C Answer Date Recorded Frequency of Alcohol Consumption Never 09/02/2018 Average Number of Drinks Not on file 019 Frequency of Binge Drinking Not on file 08/16 PHQ-2 Answer Date Recorded PHQ-2 Score 0 11/13/2018 Comments No Sex and Gender Information Value Date Recorded Sex Assigned at Not on file Legal Sex Female 7:26 PM CDT Gender Identity Not on file Sexual Orientation Not on file Last Filed Vital Signs Vital Sign Reading Time Taken Comments Blood Pressure 159/88 05/23/2020 3:09 PM CDT Pulse 86 05/23/2020 3:09 PM CDT Temperature 37.1 C (98.7 F) 05/23/2020 3:09 PM CDT Respiratory Rate 16 05/23/2020 3:09 PM CDT Oxygen Saturation 98% 05/23/2020 3:09 PM CDT Inhaled Oxygen Concentration - - Weight 71.7 kg (158 lb) 05/23/2020 3:09 PM CDT Height 154.9 cm (5' 1 ) 05/23/2020 3:09 PM CDT Body Mass Index 29.85 05/23/2020 3:09 PM CDT Plan of Treatment Health Maintenance Due Date Last Done Comments Colorectal Cancer Screening Colonoscopy (10 Years) 1958 Kidney Health Evaluation 1958 Pneumococcal Vaccine: 65+ Years (1 of 2 - PCV) 1964 Diabetes: Retinopathy Eye Exam 1976 Mammogram Screening 1998 Zoster Vaccines (1 of 2) 2008 RSV Immunization or 60+ Years (1 - Risk 60-74 years 1-dose series) 2018 Lipid Panel 07/19/2020 07/19/2019, 1211/2018, 04/10/2019, Additional history exists Hemoglobin A1C 06/25/2021 12/23/2020, 05/16, 02/14/2019, Additional history exists DTaP, Tdap and Td Vaccines (2 - Td or Tdap) 09/02/2022 09/02/2012 Dexa Scan (General) 2023 COVID-19 Vaccine ( season) 2024 Influenza Adult (#1) 2024 05/23/2020, 06/04/2016, 07/29/2015 Hepatitis C Completed 04/10/2019 Meningococcal B Vaccine Aged Out No l onger eligible based on patient's age to complete this topic Meningococcal Vaccine Aged Out No alejandra jaylyn eligible based on patient's age to complete this topic RSV Immunizations Under 20 Months Aged Out No longer eligible based on patient's age to complete this topic Procedures Procedure Name Priority Date/Time Associated Diagnosis Comments OUTSIDE LAB (SCAN ORDER) Routine 12/23/2020 LIPID PANEL Routine 07/19/2019 HEPATITIS C ANTIBODY Routine 04/10/2019 9:30 AM CDT Need for hepatitis C screening test from Last 3 Months or Most Recently Relevant to Health Maintenance Results * OUTSIDE LAB (SCAN) (12/23/2020) HGB A1C 7.1 % [facility] ON[facility] 12/23/2020 us Documents Scanned SCANNING Final [facility] * LIPID PANEL (07/19/2019) CHOLESTEROL 259 HDL 42 TRIGLYCERIDES 158 NON HDL CHOLESTEROL 217 CHOL/HDL RATIO 6.2 LDL (CALCULATED) 187 07/19/2019 us Doc [facility] Final Result * HEPATITIS C ANTIBODY (04/10/2019 9:30 AM CDT) HEPATITIS C AB NON-REACTI VE NON-REACTI VE 04/10/2019 7:[address] [facility] 04/10/2019 9:30 AM CDT Kayley [facility] Final Result [facility] [address] [place] [address], [place] [phone] from Last 3 Months or Most Recently Relevant to Health Maintenance Insurance Care Teams Orthopedic Physician Assistant Relationship Specialty Start Date End Date Kayley Kidd FNP [address] [place] [phone] PCP - General NURSE PRACTITIONER 06/18/18 Jim Johns MD [address] [facility] [address] [place] [address] [facility] Coordinator CARDIOVASCULAR DISEASE 05/04/19
--- OUTSIDE RECORDS SUMMARY | 2024-10-09 11:19 | XMS_ITS | CONTINUITY OF CARE DOCUMENT ---
Author Name melvina carymilena Address Unknown Organization [facility] Address [address] [place] [address] Phone [phone] Care Team Providers Care Armature Winder Repair Name Role Phone Shemar Looney MD Unavailable ANJU ROBERT, RASHMIN Unavailable [phone] ANJU ROBERT, RASHMIN Unavailable PROBLEMS Condition Status Date Provider Notes PALPITATIONS active Shemar Looney MD HTN BORDERLINE active Shemar Looney MD SHORTNESS OF BREATH active Shemar Looney MD ENCOUNTERS Date Type Provider Location Encounter Diag nosis - In-person encounter Office Visit Shemar Looney MD [facility] - In-person encounter Office Visit Shemar Looney MD [facility] PALPITATIONSHTN BORDERLINESHORTNESS OF BREATH VITAL SIGNS Date Observation Value Provider Body Mass Index (Ratio) 27.31 kg/m2 Aylin vi Truj[place] oxygen saturation, oximetry 99 % Felicitas Cassandra blood pressure, diastolic 93 mm[Hg] kvng [place] blood pressure, systolic 145 mm[Hg] Janene littlejohn Cassandra pulse rate 99 /min Felicitas Cassandra respiratory rate E&M 20 /min Felicitas Cassandra weight E&M 144 [lb_av] Felicitas Cassandra blood pressure, diastolic 84 mm[Hg] Diogo Nunez RN blood pressure, systolic 140 mm[Hg] Ross Nunez SYLVIA Body Mass Index (Ratio) 27.12 kg/m2 Cox i Lian blood pressure, diastolic 99 mm[Hg] Carrington rri Lian blood pressure, systolic 156 mm[Hg] Donovan ri Lian pulse rate 105 /min Lindsay Patric connor oxygen saturation, oximetry 97 % Lindsay Lian respiratory rate E&M 16 /min Lindsay G sarinabryanama weight E&M 143 [lb_av] Lindsay Patric connor height E&M 61 [in_i] Lindsay Patric connor ALLERGIES No Known Drug Allergies RESULTS Date Observation Value Provider Reference Range Interpretation Location triglyceride, serum, fasting 141 mg/dL [facility] HDL cholesterol, serum 40 mg/dL [facility] lipoprotein, beta, serum, point, quantitative, calculated 86 mg/dL [facility] cholesterol, serum 163 mg/dL [facility] thyroid stimulating hormone, serum 3.020 u[IU]/mL [facility] alanine aminotransferase (SGPT), serum 27 1/L [facility] aspartate aminotransferase (SGOT), serum 25 1/L [facility] creatinine, serum 0.92 mg/dL [facility] potassium, serum 4.4 mmol/L [facility] sodium, serum 143 mmol/L [facility] HISTORY OF MEDICATION USE Medication Status Instructions Dates Provider Indications Com ments COZAAR 50 MG ORAL TABLET active take one pill a day 5 Lindsay Beal FAMOTIDINE 20 MG ORAL TABLET active take one pill twice a day as needed 5 Lindsay Beal CRESTOR 40 MG ORAL TABLET active take one pill at beditme 5 Lindsay Beal BUPROPION HCL ER (SR) 200 MG ORAL TABLET EXTENDED RELEASE 12 HOUR active take one pill twice a day 5 Lindsay Beal SOCIAL HISTORY Date Observation Value Provider social history reviewed E&M reviewed Shemar Looney MD smoking status former smoker Felicitas Bourgeois nn smoking status quit Ross Nunez RN social history E&M Marital Status: True ramirez Shemar Looney MD social history reviewed E&M reviewed Shemar Looney MD drug use no Lindsay leblancer passive cigarette sm hui exposure no Lindsay Beal smoking history, tot al pack/year 8 Lindsay Beal smoking, year quit 1995 Lindsay degroot smoking status former smoker Lindsay serrato FUNCTIONAL STATUS Date Observation Value Provider periodic limb movement index absent (0) Daniel Frederick MD MENTAL STATUS Date Observation Value Provider assessment of judgme nt and insight E&M Alert and oriented to time, place and person. Mood and affect are normal. Shemar Looney MD assessment of judgme nt and insight E&M Alert and oriented to time, place and person. Mood and affect are normal. Shemar Looney MD INSURANCE PROVIDERS Payer name Policy type / Coverage type [facility] [place] MEDICA[place] (2) Medicaid [id number] TREATMENT PLAN Date Name Performer FOLLOW UP Shemar Looney MD FOLLOW UP:143/93 H er updated medication list for this problem includes: Cozaar 50 Mg Tabs (Losartan potassium) ..... Take one pill a day Shemar Looney MD FOLLOW UP: H er updated medication list for this problem includes: Cozaar 50 Mg Tabs (Losartan potassium) ..... Take one pill a day Shemar Looney MD New Patient : H er updated medication list for this problem includes: Cozaar 50 Mg Tabs (Losartan potassium) ..... Take one pill a day r epeat bp was 140/90 Shemar Looney MD New Patient : H er updated medication list for this problem includes: Cozaar 50 Mg Tabs (Losartan potassium) ..... Take one pill a day Orders: F ull PFT (*) C omplete Echo (CPT-58374) S TR - Routine (CPT-80324) Shemar Looney MD Date Name STR - Routine Complete Echo Full PFT HISTORY OF PROCEDURES Procedure Date Procedure Name Provider Procedure Notes S tatus DLCO - 78663 Shemar Looney MD complet ed FRC - 31798 Shemar Looney MD complete d FVC - 74009 Shemar Looney MD complete d EKG Shemar Looney MD completed
--- OUTSIDE RECORDS SUMMARY | 2024-10-09 11:19 | XMS_ITS | Encounter Summary ---
Author Organization [facility] Address [facility] [place] [address] Care Team Providers Care Contact Lens Lathe Operator Name Role Phone Kayley Kidd Primary Care Provider [phone] Jim Johns MD Unavailable [phone] Encounter Details Date Type Department Care Team (Latest Contact Info) Description 04/14/2018 Abstract [facility] Eri Delacruz MD Social History Tobacco Use Types Packs/Day Years Used Date Smoking Tobacco: Never Assessed Comments Unknown Sex and Gender Information Value Date Recorded Sex Assigned at Not on file Legal Sex Female 7:26 PM CDT Gender Identity Not on file Sexual Orientation Not on file documented as of this encounter Plan of Treatment Not on file documented as of this encounter Visit Diagnoses Not on filedocumented in this encounter Care Teams Contact Lens Lathe Operator Relationship Specialty Start Date End Date Kayley Kidd FNP [address] [place] [phone] PCP - General NURSE PRACTITIONER 06/18/18 Jim Johns MD [address] [facility] [address] [place] [address] [place] Membership Sales Manager CARDIOVASCULAR DISEASE 05/04/19 documented as of this encounter
[2024-10-09 13:06] LABS: Basophils Percent Auto 0.5 % (0.2-1.2); Eosinophils Absolute Auto 0.1 K/mm3 (0-0.3); Eosinophils Percent Auto 1.9 % (0-4.4); Hematocrit 43.6 % (37.0-47.0); Hemoglobin 13.6 g/dL (12.0-15.0); Immature Granulocyte Absolute 0.04 K/mm3 (0.00-0.031); Immature Granulocyte Percent A 0.5 % (0-0.5); Lymphocytes Absolute Auto 2.04 K/mm3 (0.9-3.2); Lymphocytes Percent Auto 27.8 % (18.3-44.2); Mean Corpuscular HGB Conc 31.2 g/dl (32-36); Mean Corpuscular Hemoglobin 27.5 pg (26-34); Mean Corpuscular Volume 88.1 fl (80-100); Monocytes Absolute Auto 0.5 K/mm3 (0.1-0.6); Neutrophils Absolute Auto 4.6 K/mm3 (1.3-6.7); Neutrophils Percent Auto 62.3 % (45.5-73.1); Platelet Count Result 329 k/mm3 (150-375); Red Blood Count 4.95 M/mm3 (4.2-5.4); Red Cell Distribution Width 12.2 % (11.5-14.5); White Blood Count 7.3 K/mm3 (4.5-10.0)
[2024-10-09 13:11] LABS: Alanine Aminotransferase 49 U/L (6-35); Albumin Level 4.4 g/dL (3.5-5.1); Alkaline Phosphatase 86 U/L (38-126); Anion Gap 10 mmol/L (4-12); Aspartate Amino Transferase 47 U/L (14-36); Bilirubin,Total 0.5 mg/dL (0.2-1.3); Blood Urea Nitrogen 14 mg/dL (7-17); Calcium 9.7 mg/dL (8.4-10.2); Carbon Dioxide 30 mmol/L (22-30); Chloride 99 mmol/L (98-107); Estimated Glomerular Filt Rate > 60; Glucose 170 mg/dL (65-110); Potassium 4.4 mmol/L (3.4-5.0); Sodium 139 mmol/L (137-145)
[2024-10-09 13:31] LABS: Free T4 Free Thyroxine 1.07 ng/dL (0.78-2.19)
[2024-10-09 13:40] LABS: Total Triiodothyronine (T3) 1.41 NG/ML (0.97-1.69)
[2024-10-09 13:54] LABS: Hemoglobin A1C 6.9 % (<5.7)
[2024-10-09 14:05] LABS: Hepatitis C Virus Antibody Negative (Negative)
== END 2024-10-09 10:09 | disposition home or self-care (01) ==
PROVIDERS: PCP Family Medicine; Visit Provider Registered Nurse
DX: E78.5 Hyperlipidemia, unspecified (principal); I10 Essential (primary) hypertension; E11.9 Type 2 diabetes mellitus without complications; G25.81 Restless legs syndrome; R53.83 Other fatigue; Z11.59 Encounter for screening for other viral diseases
CPT/HCPCS: 36415; 80053; 83036; 84439; 84443; 84480; 85025; 86803

== ENCOUNTER 2025-01-10 09:48 | Outpatient (CLI) | payer MEDICARE, MEDICAID, SELFPAY ==
[2025-01-10 10:10] LABS: Basophils Percent Auto 0.5 % (0.2-1.2); Eosinophils Absolute Auto 0.1 K/mm3 (0-0.3); Eosinophils Percent Auto 1.3 % (0-4.4); Hematocrit 42.2 % (37.0-47.0); Hemoglobin 13.5 g/dL (12.0-15.0); Immature Granulocyte Absolute 0.04 K/mm3 (0.00-0.031); Immature Granulocyte Percent A 0.5 % (0-0.5); Lymphocytes Percent Auto 33.5 % (18.3-44.2); Mean Corpuscular Volume 87.4 fl (80-100); Mean Platelet Volume 8.5 fl (7.4-10.4); Monocytes Absolute Auto 0.5 K/mm3 (0.1-0.6); Monocytes Percent Auto 6.5 % (2.6-8.5); Neutrophils Absolute Auto 4.5 K/mm3 (1.3-6.7); Neutrophils Percent Auto 57.7 % (45.5-73.1); Platelet Count Result 303 k/mm3 (150-375); Red Blood Count 4.83 M/mm3 (4.2-5.4); Red Cell Distribution Width 12.5 % (11.5-14.5); White Blood Count 7.8 K/mm3 (4.5-10.0)
[2025-01-10 10:18] LABS: Hemoglobin A1C 6.3 % (<5.7)
[2025-01-10 10:33] LABS: Alanine Aminotransferase 51 U/L (6-35); Albumin Level 4.5 g/dL (3.5-5.1); Alkaline Phosphatase 70 U/L (38-126); Anion Gap 8 mmol/L (4-12); Aspartate Amino Transferase 45 U/L (14-36); Bilirubin,Total 0.3 mg/dL (0.2-1.3); Blood Urea Nitrogen 21 mg/dL (7-17); Calcium 9.1 mg/dL (8.4-10.2); Carbon Dioxide 26 mmol/L (22-30); Chloride 103 mmol/L (98-107); Estimated Glomerular Filt Rate 60; Glucose 181 mg/dL (65-110); HDL Direct 36 mg/dL; Potassium 4.5 mmol/L (3.4-5.0); Sodium 137 mmol/L (137-145); Triglycerides 317 mg/dL (<150)
[2025-01-10 10:41] LABS: Creatinine Urine 161.9 mg/dL
[2025-01-10 10:45] LABS: MALB Creatinine Ratio 12.5 mg/g (0-30); Microalbumin Urine Random 20.3 mg/L (0-16.7)
[2025-01-10 10:46] LABS: Cholesterol 331 mg/dL (0-200)
[2025-01-10 10:51] LABS: LDL Cholesterol Direct 201 mg/dL
== END 2025-01-10 09:49 | disposition home or self-care (01) ==
LOC: ANHLAB 09:51
PROVIDERS: PCP Family Medicine; Visit Provider Registered Nurse
DX: E78.5 Hyperlipidemia, unspecified (principal); I10 Essential (primary) hypertension; E11.9 Type 2 diabetes mellitus without complications
CPT/HCPCS: 36415; 80053; 80061; 82043; 83036; 85025

== ENCOUNTER 2025-06-04 07:34 | Outpatient (CLI) | payer MEDICARE, MEDICAID, SELFPAY ==
[2025-06-04 08:54] LABS: Hematocrit 42.7 % (37.0-47.0); Hemoglobin 13.4 g/dL (12.0-15.0); Mean Corpuscular HGB Conc 31.4 g/dl (32-36); Mean Corpuscular Hemoglobin 27.5 pg (26-34); Mean Corpuscular Volume 87.5 fl (80-100); Platelet Count Result 356 k/mm3 (150-375); Red Blood Count 4.88 M/mm3 (4.2-5.4); White Blood Count 7.8 K/mm3 (4.5-10.0)
[2025-06-04 09:12] LABS: Hemoglobin A1C 6.0 % (<5.7)
[2025-06-04 09:18] LABS: Alanine Aminotransferase 35 U/L (6-35); Albumin Level 4.0 g/dL (3.5-5.1); Alkaline Phosphatase 76 U/L (38-126); Anion Gap 6 mmol/L (4-12); Aspartate Amino Transferase 43 U/L (14-36); Bilirubin,Total 0.4 mg/dL (0.2-1.3); Blood Urea Nitrogen 11 mg/dL (7-17); Calcium 9.6 mg/dL (8.4-10.2); Carbon Dioxide 30 mmol/L (22-30); Chloride 101 mmol/L (98-107); Cholesterol 280 mg/dL (0-200); Estimated Glomerular Filt Rate 58; Glucose 148 mg/dL (65-110); HDL Direct 27 mg/dL; Potassium 4.1 mmol/L (3.4-5.0); Sodium 137 mmol/L (137-145); Total Protein 7.2 g/dL (6.3-8.2); Triglycerides 329 mg/dL (<150)
[2025-06-04 09:48] LABS: Thyroid Stimulating Hormone Reflex 1.610 uIU/mL (0.465-4.68)
[2025-06-04 10:29] LABS: Vitamin B12 516.0 pg/mL (239-931)
[2025-06-04 14:10] LABS: Magnesium 2.1 mg/dL (1.6-2.3)
== END 2025-06-04 07:35 | disposition home or self-care (01) ==
PROVIDERS: PCP Family Medicine; Visit Provider Nurse Practitioner Family
DX: R53.1 Weakness (principal); E11.65 Type 2 diabetes mellitus with hyperglycemia; E78.5 Hyperlipidemia, unspecified
CPT/HCPCS: 36415; 80053; 80061; 82306; 82607; 82746; 83036; 83735; 84443; 85027